=== PATIENT | male | born 2000 ===

== ENCOUNTER 2022-08-14 10:30 | Emergency (ER) | payer OTHER ==
--- NOTE | 2022-08-14 10:36 | ERPHSYRPT ---
- History of Present Illness Time Seen by Provider: 08/14/22 10:36 Source: patient Exam Limitations: no limitations Physician History: This is a 22-year-old obese white male who does not have a primary care physician and presents with 5-day history of left flank pain that radiates down into the left lower quadrant. Patient does do a lot of heavy lifting. The pain was getting worse. Patient was seen at [facility] emergency room on 08/13/2022 and the work-up there was negative. I reviewed the report and work-up results from that facility. Patient has a history of an appendectomy in the past. Patient is not on any medications chronically and he takes no medications chronically. CT scan of the abdomen pelvis on 08/13/2022 results show no acute fractures or aggressive osseous lesions. The CAT scan of the abdomen pelvis on 08/13/2022 also reveals no ureterolithiasis, nephrolithiasis, hydronephrosis or hydroureter. Patient is here today because the pain suddenly worsened this morning with lifting and moving. He wanted a second opinion at our facility em ergency department. He has no chest pain. He has no shortness of breath. He was given a prescription of Toradol on 08/13/2022. Timing/Duration: day(s) (5) Method of Injury: unknown Quality: sharp, aching Severity of Pain-Max: mild Severity of Pain-Current: mild (To moderate to moderate) Modifying Factors: Improves With: movement Associated Symptoms: lower back pain, No urinary incontinence, No loss of bowel control, No problems urinating, No numbness in legs/feet Previous symptoms: same symptoms as today, recently seen, recently treated Allergies/Adverse Reactions: No Known Drug Allergies Allergy (Verified 08/14/22 10:38) Travel Risk - International Travel Have you traveled outside of the country in past 3 weeks: No - Coronavirus Screening Are you exhibiting any of the following symptoms?: No Close contact with a COVID-19 positive Pt in past 14-21 Days: No - Review of Systems Constitutional: No Symptoms Eyes: No Symptoms Ears, Nose, & Throat: No Symptoms Respiratory: No Symptoms Cardiac: No Symptoms Abdominal/Gastrointestinal: No Symptoms Genitourinary Symptoms: Flank Pain (Left) Musculoskeletal: Back Pain (Left lower) Skin: No Symptoms Neurological: No Symptoms Psychological: No Symptoms Endocrine: No Symptoms Hematologic/Lymphatic: No Symptoms Immunological/Allergic: No Symptoms All Other Systems: Reviewed and Negative - Past Medical History Pertinent Past Medical History: No - Past Surgical History Past Surgical History: Yes - Nursing Vital Signs Nursing Vital Signs: Initial Vital Signs Temperature 97.6 F 08/14/22 10:30 Pulse Rate 77 08/14/22 10:30 Respiratory Rate 18 08/14/22 10:30 Blood Pressure 143/80 08/14/22 10:30 O2 Sat by Pulse Oximetry 99 08/14/22 10:30 Pain Scale Pain Intensity 4 - Physical Exam General Appearance: no apparent distress, alert, anxiety, obese Eye Exam: PERRL/EOMI, eyes nml inspection Ears, Nose, Throat Exam: normal ENT inspection, moist mucous membranes Neck Exam: normal inspection, non-tender, supple, full range of motion Respiratory Exam: normal breath sounds, lungs clear, airway intact, No chest tenderness, No respiratory distress Cardiovascular Exam: regular rate/rhythm, normal heart sounds, normal peripheral pulses Gastrointestinal Exam: soft, normal bowel sounds, No tenderness Back Exam: normal inspection, normal range of motion, CVA tenderness (Left), No vertebral tenderness Extremity Exam: normal inspection, normal range of motion, pelvis stable Neurologic Exam: alert, oriented x 3, cooperative, 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 as tested, normal mood/affect, nml cerebellar function, nml station & gait, sensation nml Skin Exam: normal color, warm, dry Lymphatic Exam: No adenopathy SpO2 Interpretation: normal O2 Delivery: Room Air - Course Nursing assessment & vital signs reviewed: Yes Ordered Tests: Active Orders 24 hr Category Date Time Status ABDOMEN AND PELVIS W/0 CONTRAS [CT] Stat Exams 08/14/22 10:51 Completed UA W/RFX UR CULTURE Stat Lab 08/14/22 10:55 Completed Lab/Rad Data: Laboratory Results 08/14/22 Range/Units 10:55 Urine Color Yellow (Yellow) Urine Appearance Clear (Clear) Urine pH 7.5 (4.6-8.0) Ur Specific Huger 1.010 (1.005-1.030) Urine Protein Negative (Negative) Urine Glucose (UA) Negative (Negative) mg/dL Urine Ketones Negative (Negative) Urine Blood Negative (Negative) Urine Nitrite Negative (Negative) Urine Bilirubin Negative (Negative) Urine Urobilinogen 0.2 (0.2) mg/dL Ur Leukocyte Esterase Negative (Negative) U Hyaline Cast (Auto) NONE SEEN (0-2) /LPF Urine Microscopic RBC 0-2 (0-5) /HPF Urine Microscopic WBC 0-2 (0-5) /HPF Ur Epithelial Cells None Seen (None Seen) /HPF Urine Bacteria None Seen (None Seen) /HPF Urine Culture Reflexed NO (NO) - Progress Progress: unchanged, pain not gone completely, re-examined Progress Note: 08/14/22 11:45 This patient has a medical issue that is of low complexity. The patient had a recent work-up and he is here for second opinion. I reviewed the work-up results from an outside emergency department. By work-up here was based on the fact that the patient is in no acute emergent condition. He had the work-up performed less than 24 hours ago. I reviewed the patient's medication list, drug allergy list and performed physical examination. Only work-up necessary is to repeat a urinalysis and perform a CAT scan of the abdomen pelvis without contrast. 08/14/22 11:50 CT scan of the abdomen pelvis without contrast shows mild degenerative changes lower spine. Mild rectal impaction. No osseous acute abnormalities present. Counseled pt/family regarding: lab results, diagnosis, need for follow-up, rad results Medical Desision Making - External Record(s) Reviewed Records reviewed as a part of evaluation & management: Discharge Summary - Diagnostic Testing Diagnostic test were ordered, analyzed, and reviewed by me: Yes Radiological Interpretation: Reviewed by me, Teleradiologist Report - Risk of complications The pt has a mod risk of morbidity or mortality based on: Need for prescription drug management - Departure Departure Disposition: Home Clinical Impression: Back pain, Musculoskeletal back pain, Impacted stool in rectum Condition: Stable Critical Care Time: No Referrals: DOCTOR,NO FAMILY [Primary Care Provider] - Follow up/PCP as directed Additional Instructions: Take your medication as prescribed. Follow-up with your primary care provider for further evaluation management. May drink milk of magnesia, MiraLAX, fleets enema or glycerin suppositories to help clear your lower intestinal tract from stool. Prescriptions: Orphenadrine Citrate 100 mg [Norflex 100 MG Tablet] 100 mg PO BID #10 tab
[2022-08-14 11:29] LABS: Appearance Clear (Clear); Bacteria None Seen /HPF (None Seen); Bilirubin Negative (Negative); Blood Negative (Negative); Epithelial Cells None Seen /HPF (None Seen); Glucose, Urine Negative (Negative); Hyaline Casts NONE SEEN /LPF (0-2); Ketones Negative (Negative); Leukocyte Esterase Negative (Negative); Nitrite Negative (Negative); Ph 7.5 (4.6-8.0); Protein,Urine Dip Negative (Negative); RBC 0-2 /HPF (0-5); Urobilinogen 0.2 mg/dL (0.2); WBC 0-2 /HPF (0-5)
[2022-08-14 11:34] LABS: ADD URINE CULTURE? NO (NO)
--- NOTE | 2022-08-14 11:46 | XRAY ---
Indication: Left flank pain. Multiple contiguous axial images obtained through the abdomen and pelvis without contrast. Lung bases demonstrates 7 mm indeterminant right middle lobe subpleural noncalcified nodule with irregular margins. No infiltrate or effusion. Heart not enlarged. Noncontrasted stomach and bowel loops nonobstructed. Appendectomy reported. Mild fecal debris predominantly in ascending and transverse colon with also mild rectal impaction. No free fluid/air. Remaining liver, gallbladder, pancreas, spleen, adrenal glands, kidneys, ureters, bladder, and aorta are unremarkable for noncontrast exam. Osseous structures intact with mild lower thoracic degenerative changes. Impression: Indeterminant 7 mm right middle lobe noncalcified nodule. Mild rectal impaction. Remaining CT abdomen/pelvis without contrast exam is negative. Patient reports CT one day earlier [facility] not available at time of this dictation.
[2022-08-14 12:10] VITALS: BP 119/98; PULSE 78; O2SAT 97
== END 2022-08-14 12:19 | disposition home or self-care (01) ==
LOC: ED 10:30
DX: M54.50 Low back pain, unspecified (principal); K56.41 Fecal impaction; R10.32 Left lower quadrant pain
CPT/HCPCS: 74176; 81001; 99283